=== PATIENT | male | born 1995 | race African-American/Black ===

== ENCOUNTER 2017-06-05 18:48 | Emergency (ER) | payer OTHER, BC ==
[2017-06-05] MEDS ORDERED: KETOROLAC TROMETHAMINE 60 MG/2 ML (IM) VIAL IM ONE (19:30)
[2017-06-05] MEDS ORDERED: TETANUS/DIPHTHERIA TOXOID ADULT 0.5 ML VIAL IM ONE (19:30)
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
[2017-06-05 19:59] VITALS: BP 167/95; PULSE 84; RESP 18; O2SAT 99
[2017-06-05] MEDS ORDERED: ALLE60TA PO (20:04)
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
[2017-06-05] MEDS ORDERED: BACL10TA PO (20:54)
[2017-06-05] MEDS ORDERED: IBUP800T23 PO (20:54)
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
[2017-06-05 22:49] VITALS: RESP 20
== END 2017-06-05 23:58 | disposition home or self-care (01) ==
LOC: NEPD 18:48
DX: S39.012A Strain of muscle, fascia and tendon of lower back, initial encounter (principal); S80.211A Abrasion, right knee, initial encounter; S60.416A Abrasion of right little finger, initial encounter; Z23 Encounter for immunization; V49.40XA Driver injured in collision with unspecified motor vehicles in traffic accident, initial encounter
CPT/HCPCS: 72072; 72125; 73564; 90471; 90472; 90714; 99285; J1885